=== PATIENT | female | born 1990 | race Hispanic/Latino ===

== ENCOUNTER 2023-07-28 17:28 | Emergency (ER) | payer SELFPAY ==
[2023-07-28 17:31] VITALS: BP 149/93
[2023-07-28 17:59] LABS: % Basophils 0.5 % (0-2); % Eosinophils 0.4 % (0-6); % Immature Granulocytes 0.4 % (0-0.5); % Lymphocytes 11.8 % (20.5-51.1); % Neutrophils 80.9 % (42.2-75.2); Absolute Basophils 0.1 10^3/uL (0-0.2); Absolute Eosinophils 0.1 10^3/uL (0-0.7); Absolute Immature Granulocytes 0.1 10^3/uL (0-0.05); Absolute Lymphocytes 2.2 10^3/uL (1.2-3.4); Absolute Monocytes 1.1 10^3/uL (0.1-0.6); Absolute Neutrophils 15.1 10^3/uL (1.4-6.5); Hemoglobin 12.1 g/dL (12.0-16.0); Mean Corp Hgb Conc. 33.6 g/dL (33.0-37.0); Mean Corpuscular Hgb 25.4 pg (27.0-31.0); Mean Corpuscular Volume 75.6 fL (81.0-99.0); Mean Platelet Volume 10.4 fL (7.4-10.4); Nucleated Red Blood Cells % 0 %; Platelet Count 329 10^3/uL (130-400); Red Blood Cell Count 4.76 10^6/uL (4.20-5.40); Red Cell Dist. Width 15.3 % (11.5-14.5); White Blood Cell Count 18.7 10^3/uL (4.8-10.8)
[2023-07-28 18:09] LABS: HCG, Serum Qualitative Screen Negative
[2023-07-28 18:10] LABS: COVID-19 Antigen Negative (Negative)
[2023-07-28 18:13] LABS: ALT (SGPT) 39 U/L (0-35); AST (SGOT) 45 U/L (14-36); Albumin 3.9 g/dl (3.5-5.0); Alkaline Phosphatase 178 U/L (38-126); Blood Urea Nitrogen 8 mg/dl (7-17); Calcium 8.9 mg/dl (8.4-10.2); Carbon Dioxide 24 mmol/L (22-30); Chloride 99 mmol/L (98-107); Glucose 125 mg/dl (70-99); Potassium 3.9 mmol/L (3.5-5.1); Sodium 136 mmol/L (135-145); Total Bilirubin 0.9 mg/dl (0.2-1.3); Total Protein 7.2 g/dl (6.3-8.2); eGFR > 60.00
--- NOTE | 2023-07-28 20:29 | ED.GENMED ---
History of Present Illness
General
Chief Complaint: Fever
Source: patient and hospital pharmacy technician (Niece is interpreting. )
Exam Limitations: none
Time Seen by Provider: 07/28/23 19:50
Travel History
Have you had any contact with someone who has COVID-19?: No
Do you have any symptoms of coronavirus? Fever > 100 degrees, chills, cough, shortness of breath, sore throat, loss of taste or smell, muscle aches, or headache?: Yes
Symptoms:: sore throat
History of Present Illness
History of Present Illness:
This is a 33 year old female that comes in with c/o fever for the past 3 ays. States that she also has a sore throat and that she hasn't eaten a her throat is sore for the past 2 days. State that her fever at home was 102. States that she has had
chills, cough, abd discomfort, nausea, vomiting, diarrhea, headache, dizziness. Denies any chest pain, SOB, or urinary burning.
Past History
Past History
ED Past Medical History: Other (Pre-diabetic)
ED Past Surgical History: ( X 2)
Social History
Tobacco: Non-smoker
Alcohol: None
Personal:
Living: with family
Review of Systems
Review of Systems
All Other Systems: ROS reviewed and negative except as documented in HPI and ROS
Constitutional: Reports fever and chills
EENT: Reports sore throat
Respiratory: Reports cough; Denies trouble breathing
Cardiac: Reports no symptoms; Denies chest pain
ABD/GI: Reports abdominal pain, nausea, vomiting and diarrhea
: Reports no symptoms; Denies dysuria, frequency or urgency
Musculoskeletal: Reports no symptoms
Skin: Reports no symptoms
Neurological: Reports dizzy and headache
Psychiatric: Reports no symptoms
Phy Exam
General Physical Exam
General Presentation: no apparent distress
General age: appears stated age
General Skin: warm and dry
General Habitus: normal
General Mental: alert
General Hydration: appears well hydrated
ENT Exam
ENT Exam: TM's normal, neck supple and pharyngeal erythema (with exudate)
Eye Exam
Eye Exam: EOMI
Cardiovascular Exam
Cardiovascular Exam: regular rate/rhythm, no edema, no murmur and normal peripheral pulses
Pulmonary Exam
Pulmonary Exam: lungs clear, no respiratory distress, no rales, chest non tender, no crackles, no rhonchi, no wheezing and no cough
Gastrointestinal Exam
Gastrointestinal Exam: normal bowel sounds, soft, no organomegaly, no pulsatile mass, non distended and tender (Slight Right upper abd tenderness with palpation)
Musculoskeletal Exam
Musculoskeletal Exam: full ROM and no edema
Skin Exam
Skin Exam: normal color, warm/dry, no rash and no petechia
Psychiatric Exam
Psychiatric Exam: normal mood/affect
Course
Orders/Labs/Results
Orders:
Orders
07/28/23 17:41
Test Result ONCE
07/28/23 17:47
COVID-19 Antigen Urgent
Source: Nasal Swab
Complete Blood Count/With Diff Urgent
Comprehensive Metabolic Panel Urgent
HCG, Serum Qualitative Screen Urgent
Monotest Urgent
Comment: ADD ON
Influenza A+B Rapid Molecular Urgent
DAVID Source: Nasal Swab
Specimen Description:
07/28/23 20:28
0.9% Sodium Chloride 1000 ml [Nss] 1,000 ml IV BOLUS
CR Chest - 2 Views Urgent
Comment:
Reason For Exam: fever. cough
US Abdomen Complete/Upper Urgent
Comment:
Reason For Exam: right upper abd tenderness
07/28/23 20:29
Ketorolac [Toradol] 30 mg IV NOW STA
07/28/23 20:34
Add On- LAB Urgent
Tests Added?: Powell
07/28/23 20:43
Rapid Strep Group A Urgent
DAVID Source: Throat/Pharynx
Specimen Description:
Date Specimen was Collected: 07/28/23
Time Specimen was Collected: 20:30
Abnormal Lab Results
07/28/23
17:47
WBC 18.7 H 10^3/uL
(4.8-10.8)
Hct 36.0 L %
(37.0-47.0)
MCV 75.6 L fL
(81.0-99.0)
MCH 25.4 L pg
(27.0-31.0)
RDW 15.3 H %
(11.5-14.5)
Abs Immat Gran (auto) 0.1 H 10^3/uL
(0-0.05)
Absolute Neuts (auto) 15.1 H 10^3/uL
(1.4-6.5)
Absolute Monos (auto) 1.1 H 10^3/uL
(0.1-0.6)
Neutrophils % 80.9 H %
(42.2-75.2)
Lymphocytes % 11.8 L %
(20.5-51.1)
Glucose 125 H mg/dl
(70-99)
AST 45 H U/L
(14-36)
ALT 39 H U/L
(0-35)
Alkaline Phosphatase 178 H U/L
(38-126)
07/28/23 17:47
07/28/23 17:47
Leukocytosis, Glucose nonfasting. AST/ALT elevation. Alk phos elevation. HCG negative, COVID and influenza negative.
mono negative, Positive for Strep throat
Vital Signs
Initial and Last Documented VS:
Initial Vital Signs
Temp Pulse Resp BP Pulse Ox
99.8 F 132 22 149/93 99
07/28/23 17:31 07/28/23 17:31 07/28/23 17:31 07/28/23 17:31 07/28/23 17:31
Last Documented Vital Signs
Temp Pulse Resp BP Pulse Ox
99.0 F 95 14 103/58 99
07/28/23 22:16 07/28/23 22:16 07/28/23 22:16 07/28/23 22:16 07/28/23 22:16
MDM/Problems Addressed
Differential Diagnosis Includes:
Gallbladder disease, Strep throat
MDM/Problems Addressed:
This is a 33 year old female that comes in with c/o fever and sore throat. States that she has had a fever for the pat 3 days with the highest at home of 102. State that her throat is also sore and she has not eaten in the past 2 days due to the
sore throat. States that she has slightly abd pain, nausea, vomiting and diarrhea. States that she also has a headache with some dizziness.
Will get labs. US abd, chest x-ray. Rapid strep, COVID and influenza.
Back into see patient and using the Systems Specialist Reviewed all finding with patient. Explained that she does have strep throat. Questioned patient if she would like oral medication of a one time injection to treat the strep throat. Patient would like
the injection. Will have patient increase her water intake to 8-8oz glasses daily. Tylenol or Ibuprofen for fever. Follow up in the Clinic as needed.
Chronic conditions affecting care:
NA
Acute Exacerbation and/or Progression of Chronic Illness:
NA
*Radiology
Radiology exam reviewed: radiology read reviewed (Chest- Unremarkable exam US= Gallstones. No secondary findings to suggest acute cholecystitis. Hepatic fatty infiltration. Poor visualization of pancreatic tail and proximal IVC and abd aorta. )
*Pulse Oximetry
Patient hypoxic: no
*EKG
Interpreted by ED Provider?: NA
Rate: EKG- N/A
*President[employer] Interpretation
Rate: [employer]- N/A
*Critical Care Note
Total Time (30-74mins, 75-104mins- exclusive of procedures): Not Applicable
ED Attending Note
-
Portions of this chart may have been created with voice recognition software.� Occasional wrong word or��sound alike� substitutions may have occurred due to the inherent limitations of voice recognition software.
Discharge Plan
Departure
Patient Disposition: Home (Routine Discharge)
Date of Disposition: 07/28/23
Time of Disposition: 22:54
Patient with high blood pressure during this ER visit?: No
Condition: Good
Covid-19: Negative COVID-19
Discharge Problem:
Strep throat
Instructions: Strep Throat (DC)
Referrals:
NONE,* [Family Provider] -
Activity Restrictions/Additional Instructions:
As discussed, your blood work shows that you are anemic. Please try eating some Spinach and green leafy vegetables. You are negative for COVID and Influenza. Your chest -ray is normal. Your US shows that you do have gallstones but there is no
gallbladder disease. You are positive for Strep. You have been given an Injection with an antibiotic that is a one time dose to treat the step throat. Please increase your water intake to 8-8oz glasses daily. You may use Tylenol 1000mg every 6 hours
for fever or Ibuprofen 600mg every 6 hours with food for fever. Follow up in the Clinic as needed. IF YOU HAVE ANY OTHER CONCERNS PLEASE RETURN TO THE EMERGENCY ROOM
Interventions
Interventions:
*Risk Screen - Suicide Last Done: 07/28/23 17:31
*General Assessment Last Done: 07/28/23 17:31
*Neglect/Abuse Screening Last Done: 07/28/23 17:31
ED-EENT Assessment Last Done: 07/28/23 20:14
ED- Neurological Assessment Last Done: 07/28/23 20:14
ED- Pulmonary Assessment Last Done: 07/28/23 20:14
ED-Skin Assessment Last Done: 07/28/23 20:14
Discharge Date and Time
Print Language: [place]
[2023-07-28] MEDS: TORADOL 30 MG IV (20:40)
[2023-07-28] MEDS: NSS 1000 IV (20:40)
[2023-07-28 21:11] LABS: Monotest Negative (Negative)
[2023-07-28 22:16] VITALS: BP 103/58
[2023-07-28] MEDS: BICILLIN LA 1200000 UNITS IM (23:14)
[2023-07-28 23:23] VITALS: BP 92/57
== END 2023-07-28 23:43 | disposition home or self-care (01) ==
LOC: EMR 17:28
PROVIDERS: Emergency Medicine; EMERGENCY PHYSICIAN Emergency Medicine
DX: J02.0 Streptococcal pharyngitis (principal)
CPT/HCPCS: 99285; 96374; 96361; 96372; 71046; 76700; 80053; 84703; 85025; 86308; 87070; 87502; 87811; 87880; J0561

== ENCOUNTER → 2023-10-23 10:59 | Outpatient (REF) | payer OTHER, SELFPAY ==
[2023-10-23 11:32] LABS: % Basophils 0.4 % (0-2); % Eosinophils 2.1 % (0-6); % Immature Granulocytes 0.1 % (0-0.5); % Lymphocytes 32.4 % (20.5-51.1); % Monocytes 7.9 % (1.7-9.3); % Neutrophils 57.1 % (42.2-75.2); Absolute Eosinophils 0.1 10^3/uL (0-0.7); Absolute Lymphocytes 2.2 10^3/uL (1.2-3.4); Absolute Monocytes 0.5 10^3/uL (0.1-0.6); Absolute Neutrophils 3.9 10^3/uL (1.4-6.5); Hematocrit 35.4 % (37.0-47.0); Hemoglobin 11.1 g/dL (12.0-16.0); Mean Corp Hgb Conc. 31.4 g/dL (33.0-37.0); Mean Corpuscular Hgb 24.7 pg (27.0-31.0); Mean Corpuscular Volume 78.8 fL (81.0-99.0); Mean Platelet Volume 10.7 fL (7.4-10.4); Nucleated Red Blood Cells % 0 %; Platelet Count 344 10^3/uL (130-400); Red Blood Cell Count 4.49 10^6/uL (4.20-5.40); Reticulocyte Count 1.8 % (0.4-2.8); White Blood Cell Count 6.8 10^3/uL (4.8-10.8)
[2023-10-23 11:59] LABS: ALT (SGPT) 20 U/L (0-35); AST (SGOT) 24 U/L (14-36); Albumin 3.9 g/dl (3.5-5.0); Alkaline Phosphatase 123 U/L (38-126); Blood Urea Nitrogen 9 mg/dl (7-17); Calcium 8.6 mg/dl (8.4-10.2); Carbon Dioxide 25 mmol/L (22-30); Chloride 105 mmol/L (98-107); Glucose 116 mg/dl (70-99); HDL Cholesterol 51 mg/dl; LDL Cholesterol, Calculated 117 mg/dl; Potassium 4.2 mmol/L (3.5-5.1); Sodium 136 mmol/L (135-145); Total Bilirubin 0.4 mg/dl (0.2-1.3); Total Cholesterol 205 mg/dl (50-199); Total Protein 7.2 g/dl (6.3-8.2); Triglyceride 185 mg/dl (10-149); Very Low Density Lipoprotein 37 mg/dl (0-30); eGFR > 60.00
[2023-10-23 12:06] LABS: Glycohemoglobin (HgbA1c) 7.3 % (4.0-5.6)
[2023-10-23 12:13] LABS: Vitamin D, 25-OH*** 24.1 ng/mL (30-80)
[2023-10-23 12:30] LABS: Ferritin 14.1 ng/ml (6.24-137)
[2023-10-23 12:33] LABS: TSH 1.31 uIU/ml (0.47-4.68)
== END ==
LOC: REG 10:59
PROVIDERS: ATTENDING PHYSICIAN Student in an Organized Health Care Education/Training Program
DX: Z00.00 Encounter for general adult medical examination without abnormal findings (principal); R73.03 Prediabetes
CPT/HCPCS: 36415; 80053; 80061; 82306; 82728; 83036; 84443; 85025; 85045

== ENCOUNTER → 2024-02-14 08:33 | Outpatient (REF) | payer OTHER, SELFPAY ==
[2024-02-14 09:54] LABS: % Basophils 0.5 % (0-2); % Eosinophils 1.8 % (0-6); % Immature Granulocytes 0.2 % (0-0.5); % Lymphocytes 28.6 % (20.5-51.1); % Monocytes 6.4 % (1.7-9.3); % Neutrophils 62.5 % (42.2-75.2); Absolute Eosinophils 0.2 10^3/uL (0-0.7); Absolute Lymphocytes 2.4 10^3/uL (1.2-3.4); Absolute Monocytes 0.6 10^3/uL (0.1-0.6); Absolute Neutrophils 5.3 10^3/uL (1.4-6.5); Hematocrit 35.3 % (37.0-47.0); Hemoglobin 11.5 g/dL (12.0-16.0); Mean Corp Hgb Conc. 32.6 g/dL (33.0-37.0); Mean Corpuscular Hgb 25.1 pg (27.0-31.0); Mean Corpuscular Volume 77.1 fL (81.0-99.0); Nucleated Red Blood Cells % 0 %; Platelet Count 387 10^3/uL (130-400); Red Blood Cell Count 4.58 10^6/uL (4.20-5.40); Red Cell Dist. Width 15.3 % (11.5-14.5); White Blood Cell Count 8.5 10^3/uL (4.8-10.8)
[2024-02-14 10:19] LABS: Iron 41 ug/dl (37-170)
[2024-02-14 10:29] LABS: Percent Saturation 10 % (20-50); Total Iron Binding Capacity 377 ug/dl (265-497)
[2024-02-14 10:56] LABS: Ferritin 16.5 ng/ml (6.24-137)
[2024-02-14 11:53] LABS: Glycohemoglobin (HgbA1c) 7.6 % (4.0-5.6)
[2024-02-16 05:58] LABS: Vitamin D 1,25 Dihydroxy 82.9 pg/mL (19.9-79.3)
[2024-02-16 06:59] LABS: Transferrin 303 mg/dL (200-360)
== END ==
LOC: CLINIC 08:33
PROVIDERS: ATTENDING PHYSICIAN Student in an Organized Health Care Education/Training Program
DX: D50.9 Iron deficiency anemia, unspecified (principal); E11.9 Type 2 diabetes mellitus without complications; E55.9 Vitamin D deficiency, unspecified
CPT/HCPCS: 36415; 82652; 82728; 83036; 83540; 83550; 84466; 85025

== ENCOUNTER → 2024-05-12 14:04 | Outpatient (REF) | payer OTHER, SELFPAY | LOC: CLINIC 14:04 | PROVIDERS: ATTENDING PHYSICIAN Nurse Practitioner Adult Health | DX: Z12.4 Encounter for screening for malignant neoplasm of cervix (principal) | CPT/HCPCS: G0123 ==

== ENCOUNTER → 2024-08-19 09:27 | Outpatient (REF) | payer OTHER, SELFPAY ==
[2024-08-19 10:59] LABS: % Basophils 0.5 % (0-2); % Eosinophils 1.4 % (0-6); % Immature Granulocytes 0.4 % (0-0.5); % Lymphocytes 31.8 % (20.5-51.1); % Neutrophils 58.9 % (42.2-75.2); Absolute Eosinophils 0.1 10^3/uL (0-0.7); Absolute Lymphocytes 2.5 10^3/uL (1.2-3.4); Absolute Monocytes 0.5 10^3/uL (0.1-0.6); Absolute Neutrophils 4.5 10^3/uL (1.4-6.5); Hematocrit 36.8 % (37.0-47.0); Hemoglobin 11.4 g/dL (12.0-16.0); Mean Corpuscular Hgb 24.2 pg (27.0-31.0); Mean Corpuscular Volume 78.1 fL (81.0-99.0); Mean Platelet Volume 10.8 fL (7.4-10.4); Nucleated Red Blood Cells % 0 %; Platelet Count 376 10^3/uL (130-400); Red Blood Cell Count 4.71 10^6/uL (4.20-5.40); Red Cell Dist. Width 15.1 % (11.5-14.5); White Blood Cell Count 7.7 10^3/uL (4.8-10.8)
[2024-08-19 11:32] LABS: HDL Cholesterol 49 mg/dl; LDL Cholesterol, Calculated 127 mg/dl; Total Cholesterol 219 mg/dl (50-199); Triglyceride 217 mg/dl (10-149); Very Low Density Lipoprotein 43 mg/dl (0-30)
[2024-08-19 11:41] LABS: Total Iron Binding Capacity 416 ug/dl (265-497)
[2024-08-19 11:56] LABS: Ferritin 13.4 ng/ml (6.24-137)
== END ==
LOC: CLINIC 09:27
PROVIDERS: ATTENDING PHYSICIAN Student in an Organized Health Care Education/Training Program
DX: E78.00 Pure hypercholesterolemia, unspecified (principal); Z00.00 Encounter for general adult medical examination without abnormal findings
CPT/HCPCS: 36415; 80061; 82728; 83550; 85025

== ENCOUNTER → 2024-08-30 09:45 | Outpatient (REF) | payer OTHER, SELFPAY ==
[2024-08-30 12:08] LABS: Vitamin B12 601 pg/ml (239-931)
[2024-08-30 12:13] LABS: Vitamin D, 25-OH*** 21.5 ng/mL (30-80)
[2024-08-30 12:32] LABS: Glycohemoglobin (HgbA1c) 7.2 % (4.0-5.6)
== END ==
LOC: CLINIC 09:45
PROVIDERS: ATTENDING PHYSICIAN Student in an Organized Health Care Education/Training Program
DX: E11.9 Type 2 diabetes mellitus without complications (principal); E67.3 Hypervitaminosis D; L65.9 Nonscarring hair loss, unspecified
CPT/HCPCS: 36415; 82306; 82607; 83036